=== PATIENT | female | born 1950 | race Caucasian/White ===

== ENCOUNTER → 2018-02-18 | Outpatient (CLI) | payer MEDICARE | END | disposition home or self-care (01) | LOC: RAH 12:46 | PROVIDERS: ATTEND Physical Medicine & Rehabilitation | DX: M16.11 Unilateral primary osteoarthritis, right hip (principal); M17.11 Unilateral primary osteoarthritis, right knee | CPT/HCPCS: 73502; 73562 ==

== ENCOUNTER → 2019-08-25 | Outpatient (CLI) | payer MEDICARE | END | disposition home or self-care (01) | LOC: RAH 08:48 | PROVIDERS: ATTEND Physical Medicine & Rehabilitation | DX: M79.605 Pain in left leg (principal) | CPT/HCPCS: 73590 ==

== ENCOUNTER → 2020-07-04 | Outpatient (CLI) | payer MEDICARE | END | disposition home or self-care (01) | LOC: RAH 09:47 | PROVIDERS: ATTEND Physical Medicine & Rehabilitation | DX: M16.0 Bilateral primary osteoarthritis of hip (principal) | CPT/HCPCS: 72170; 73502 ==

== ENCOUNTER 2020-09-03 15:00 | Inpatient (IN) | payer MEDICARE ==
[~2020-09-03] VITALS: Ht 160 cm; Wt 91.9 kg
[2020-09-03 10:12] LABS: APPEARANCE,URINE Clear (CLEAR); BILIRUBIN,URINE Negative (NEGATIVE); COLOR,URINE Yellow (YELLOW); GLUCOSE, URINE (UA) Negative (NEGATIVE); KETONES,URINE Negative (NEGATIVE); LEUKOCYTE ESTERASE ,URINE Trace (NEGATIVE); NITRATE,URINE Negative (NEGATIVE); OCCULT BLOOD,URINE Negative (NEGATIVE); PH,URINE 6.5 (5.0-8.0); PROTEIN,URINE Negative (NEGATIVE); UROBILINOGEN,URINE 0.2 mg/dL (0.2-1.0)
[2020-09-03 10:21] LABS: BACTERIA,URINE Rare /HPF (None Seen); RBC,URINE None Seen /HPF (0-1); WBC,URINE 0-1 /HPF (0-1)
[2020-09-03 10:22] LABS: MUCUS,URINE Moderate LPF (None Seen)
[2020-09-07] MEDS ORDERED: ESCI10TA54 PO (16:30)
[2020-09-07] MEDS ORDERED: CYAN100022 SL (16:30)
[2020-09-07] MEDS ORDERED: PRAS25CA3 PO (16:30)
[2020-09-07] MEDS ORDERED: ZINC SULFATE PO (16:30)
[2020-09-07] MEDS ORDERED: METF-446 PO (16:30)
[2020-09-07] MEDS ORDERED: ASCO100031 PO (16:30)
[2020-09-07] MEDS ORDERED: CALC600T15 PO (16:30)
[2020-09-07] MEDS ORDERED: CHOL200013 PO (16:30)
[2020-09-07] MEDS ORDERED: MAGN250T10 PO (16:30)
[2020-09-07] MEDS ORDERED: OMEP40CA13 PO (16:30)
[2020-09-07] MEDS ORDERED: TUMERIC PO (16:30)
[2020-09-07] MEDS ORDERED: MULT-1367 PO (16:30)
[2020-09-07] MEDS ORDERED: SUCR1TAB PO (16:30)
[2020-09-07] MEDS ORDERED: ASPI-1443 PO (16:30)
--- NOTE | 2020-09-07 16:52 | NUR ---
LAB ABNORMAL UA REPORTED TO DR DENNIS FURTHER ORDERS GIVEN AND WILL CARRIED OUT
[2020-09-10] VITALS (13 sets, daily range): BP systolic 112–159; BP diastolic 60–85
[2020-09-10] MEDS ORDERED: GENTAMICIN SULFATE 240 MG in SODIUM CHLORIDE 0.9% 100 ML IV SCH (06:00)
[2020-09-10] MEDS: CLINDAMYCIN 900 MG/D5% WATER 50 ML IV SCH ×2 (06:00→20:20)
[2020-09-10] MEDS ORDERED: SODIUM CHLORIDE 0.9% 1000ML 1,000 ML IV ONE (10:43)
--- NOTE | 2020-09-10 10:45 | NUR ---
preop pt arrived via w/c in no distress. pt oriented to call light and room. will cont to monitor pt.
[2020-09-10] MEDS ORDERED: CLINDAMYCIN PHOSPHATE 150 MG/ML 6ML VIAL ONE (19:19)
[2020-09-10] MEDS ORDERED: TRANEXAMIC ACID 1000MG/10ML ONE ×2 (19:36→22:56)
[2020-09-10] MEDS ORDERED: LIDOCAINE PF 2% 5ML ABBOJECT ONE (19:39)
[2020-09-10] MEDS ORDERED: PROPOFOL 10 MG/ML 20ML VIAL IV ONE (19:39)
[2020-09-10] MEDS ORDERED: DEXAMETHASONE SOD PHOSPHATE 10MG/ML 1ML VIAL ONE (19:40)
[2020-09-10] MEDS ORDERED: FENTANYL CITRATE PF 50 MCG/1 ML 2ML VIAL ONE ×2 (19:40→20:38)
[2020-09-10] MEDS ORDERED: ROCURONIUM 10MG/1ML SYR 10 MG/ML ML ONE ×2 (19:40→21:39)
[2020-09-10] MEDS ORDERED: ONDANSETRON HCL 4 MG/2 ML VIAL ONE (19:40)
[2020-09-10] MEDS ORDERED: MIDAZOLAM HCL 1 MG/ML 2ML VIAL ONE (19:40)
[2020-09-10] MEDS ORDERED: ROPIVACAINE 0.5% 5MG/ML 30ML IJ ONE (19:41)
[2020-09-10] MEDS ORDERED: EPHEDRINE SULFATE 50 MG/ML AMPULE ONE (20:08)
[2020-09-10] MEDS ORDERED: CLINDAMYCIN PHOSPHATE 150 MG/ML 6ML VIAL IJ ONE (20:44)
[2020-09-10] MEDS: ACETAMINOPHEN EXTRA STRENGTH 500 MG TABLET PO SCH (22:30)
[2020-09-10] MEDS ORDERED: OXYCODONE HCL 5 MG TAB PO PRN (22:30)
[2020-09-10] MEDS ORDERED: CALCIUM CARBONATE 500 MG TABLET PO PRN (22:30)
[2020-09-10] MEDS ORDERED: TRAMADOL HCL 50 MG TABLET PO PRN (22:30)
[2020-09-10] MEDS ORDERED: KETOROLAC TROMETHAMINE 15MG/ML IV PRN (22:30)
[2020-09-10] MEDS ORDERED: POTASSIUM CHLORIDE 20MEQ/100ML 100 ML IV PRN (22:30)
[2020-09-10] MEDS ORDERED: ONDANSETRON HCL 4 MG/2 ML VIAL IVP PRN (22:30)
[2020-09-10] MEDS ORDERED: FERROUS FUMARATE 324 MG TABLET PO PRN (22:30)
[2020-09-10] MEDS ORDERED: POTASSIUM CHLORIDE 10% ELIXIR 20 MEQ/15 ML UDCUP PO PRN (22:30)
[2020-09-10] MEDS: SODIUM CHLORIDE 0.9% 1000ML 1,000 ML IV SCH (22:30)
[2020-09-10] MEDS ORDERED: POTASSIUM CHLORIDE 20 MEQ ERTAB PO PRN (22:30)
[2020-09-10] MEDS ORDERED: LIDOCAINE HCL-MPF 1% 2ML VIAL IV PRN (22:30)
[2020-09-10] MEDS ORDERED: DiphenhydrAMINE HCL 50 MG/ML VIAL IVP PRN (22:30)
[2020-09-10] MEDS ORDERED: TEMAZEPAM 15 MG CAPSULE PO PRN (22:30)
[2020-09-10] MEDS ORDERED: MEPERIDINE-PF 25 MG/ML SYG ONE ×2 (23:18→23:40)
[2020-09-11] VITALS (18 sets, daily range): BP systolic 92–126; BP diastolic 51–70
[2020-09-11] MEDS ORDERED: ASPIRIN 81 MG EC TAB PO SCH (02:00)
[2020-09-11] MEDS: CLINDAMYCIN 900 MG/D5% WATER 50 ML IVPB SCH ×2 (03:23→12:09)
[2020-09-11 03:46] LABS: HEMATOCRIT 36.5 % (36-48); MEAN CORPUSCULAR HEMOGLOBIN 30.7 pg (27.0-33.0); MEAN CORPUSCULAR HGB CONC 32.6 g/dL (32.0-36.0); MEAN CORPUSCULAR VOLUME 94.3 fL (79-99); RED BLOOD CELL COUNT(AUTO) 3.87 MIL/uL (4.00-5.50); RED CELL DISTRIBUTION WIDTH 12.3 % (11.0-15.5); WHITE BLOOD COUNT (AUTO) 9.8 K/uL (4.8-10.8)
[2020-09-11 03:57] LABS: CREATININE 0.7 mg/dL (0.5-1.5); POTASSIUM 3.7 mmol/L (3.5-5.1)
[2020-09-11] MEDS: VANCOMYCIN 1GM+NS 250ML 250 ML IV SCH ×2 (04:44→16:44)
[2020-09-11] MEDS: INSULIN HUMULIN R 100 UNIT/ML 3ML SQ SCH ×4 (06:26→21:00)
[2020-09-11] MEDS: ACETAMINOPHEN EXTRA STRENGTH 500 MG TABLET PO SCH ×3 (06:29→22:28)
[2020-09-11] MEDS: MULTIVITAMIN TABLET PO SCH (08:29)
[2020-09-11] MEDS: ASCORBIC ACID 500 MG TAB PO SCH (08:29)
[2020-09-11] MEDS: APIXABAN 2.5 MG TABLET PO SCH ×2 (08:29→22:28)
[2020-09-11] MEDS: CELECOXIB 200 MG CAP PO SCH ×2 (08:30→22:28)
[2020-09-11] MEDS: CALCIUM CARBONATE 500 MG TABLET PO SCH ×2 (08:30→22:28)
[2020-09-11] MEDS: METFORMIN HCL 500 MG TABLET PO SCH ×2 (08:30→16:44)
[2020-09-11] MEDS: SODIUM CHLORIDE 0.9% 1000ML 1,000 ML IV SCH ×2 (08:30→18:30)
[2020-09-11] MEDS: ZINC SULFATE 220 CAPSULE PO SCH (08:30)
[2020-09-11] MEDS: PREGABALIN 25 MG CAP PO SCH ×2 (08:31→22:29)
[2020-09-11] MEDS: PANTOPRAZOLE SODIUM 40 MG TABLET.DR PO SCH (08:31)
[2020-09-11] MEDS: **HM** VIT D3 50MCG PO SCH ×2 (08:32→21:00)
[2020-09-11] MEDS: POLYETHYLENE GLYCOL 3350 17 GM POWD.PACK PO SCH (08:33)
[2020-09-11] MEDS: **HM** DHEA 25MG PO SCH (08:33)
[2020-09-11] MEDS: CYANOCOBALAMIN (VITAMIN B-12) 1,000 MCG TABLET PO SCH (08:43)
[2020-09-11] MEDS: OXYCODONE HCL 5 MG TAB PO PRN ×3 (09:55→22:27)
[2020-09-11] MEDS ORDERED: PHARMACY COMMUNICATION MISC SCH (16:00)
--- NOTE | 2020-09-11 16:34 | NUR ---
MET WITH PATIENT AT BEDSIDE [facility] WITH SPOUSE. PREVIOUSLY INDEPENDENT, NO DME OR SERIVCES, DRIVES ORDER FOR REHAB VS HH, STATES WILL GO [facility] AND REFRRAL SENT Addendum: 09/12/20 at 1638 by MARCUS LOUIE RN CM Amended: Links added.
[2020-09-11] MEDS ORDERED: CITALOPRAM 20 MG TABLET PO SCH (21:00)
[2020-09-11] MEDS ORDERED: SUCRALFATE 1 GM TABLET PO SCH (21:00)
[2020-09-11] MEDS ORDERED: MAGNESIUM OXIDE 400 MG TABLET PO SCH (21:00)
--- NOTE | 2020-09-11 23:35 | NUR ---
ACTIVITY PATIENT SAYS SHE WOULD LIKE TO SIT IN CHAIR SHE FEELS TIRED ON BEING IN BED. ASSISTED HER AND PROVIDED CALL LIGHT AND BEDSIDE TABLE WITHIN REACH.
[2020-09-12] VITALS: BP 113/62
[2020-09-12 04:00] VITALS: BP 120/55
[2020-09-12] MEDS: INSULIN HUMULIN R 100 UNIT/ML 3ML SQ SCH ×2 (06:44→10:48)
[2020-09-12] MEDS: ACETAMINOPHEN EXTRA STRENGTH 500 MG TABLET PO SCH ×2 (06:55→15:08)
[2020-09-12 07:45] VITALS: BP 101/71
[2020-09-12] MEDS: **HM** VIT D3 50MCG PO SCH (09:00)
[2020-09-12] MEDS: **HM** DHEA 25MG PO SCH (09:00)
[2020-09-12] MEDS: MULTIVITAMIN TABLET PO SCH (09:32)
[2020-09-12] MEDS: ZINC SULFATE 220 CAPSULE PO SCH (09:33)
[2020-09-12] MEDS: APIXABAN 2.5 MG TABLET PO SCH (09:33)
[2020-09-12] MEDS: PREGABALIN 25 MG CAP PO SCH (09:33)
[2020-09-12] MEDS: CALCIUM CARBONATE 500 MG TABLET PO SCH (09:33)
[2020-09-12] MEDS: CYANOCOBALAMIN (VITAMIN B-12) 1,000 MCG TABLET PO SCH (09:33)
[2020-09-12] MEDS: CELECOXIB 200 MG CAP PO SCH (09:33)
[2020-09-12] MEDS: PANTOPRAZOLE SODIUM 40 MG TABLET.DR PO SCH (09:33)
[2020-09-12] MEDS: POLYETHYLENE GLYCOL 3350 17 GM POWD.PACK PO SCH (09:36)
[2020-09-12] MEDS: ASCORBIC ACID 500 MG TAB PO SCH (09:36)
[2020-09-12] MEDS: METFORMIN HCL 500 MG TABLET PO SCH (09:43)
[2020-09-12 11:07] VITALS: BP 105/61
[2020-09-12] MEDS: OXYCODONE HCL 5 MG TAB PO PRN (12:05)
[2020-09-12] MEDS ORDERED: APIX2.5T PO (13:36)
[2020-09-12] MEDS ORDERED: HYDR-4457 PO (13:36)
--- NOTE | 2020-09-12 18:15 | NUR ---
REPORT TO [facility] REPORT GIVEN TO [facility] AND CALL BACK NUMBERS GIVEN FOR ANY FOLLOW-UP QUESTIONS, [facility] AND 3 IN ONE CHAIR DELIVERED TO HOME PER .
--- NOTE | 2020-09-12 18:30 | NUR ---
DISCHARGE INSTRUCTIONS PATIENT AND GIVEN DISCHARGE INSTRUCTIONS AND VERBALIZED UNDERSTANDING , INSTRUCTED ON HEIDI DRESSING CARE AND TO MONITOR GREEN LIGHT FOR INTACT SEAL AND HOME HEALTH NURSE TO D/C HEIDI ON THE 09/17/20. , REVIEWED MEDICATIONS TO CONTINUE, STATES PAIN SCORE IS A 2 ,REVIEWED PAIN MEDICATION , EDUCATION GIVEN ON CARE AFTER ORIF OF HIP, AND FOLLOW-UP APPOINTMENT WITH DR DENNIS ON 10/03/20 AT V@ 1328. NEW MEDICATIONS WERE TRANSMITTED TO PATIENT PHARMACY. HEIDI DRESSING WAS CHANGE AND SEAL IS INTACT WITH NO LEAKS . PATIENT INSTRUCTED ON WHEN TO CALL HER DOCTOR IN FEVER, FOUL DRAINAGE FROM SITE OR IF INCREASED PAIN UNCONTROL WITH PAIN MEDICATIONS. PATIENT TAKING BY WHEELCHAIR TO [facility] TO MEET AND LEFT FOR HOME
[2020-09-13] MEDS ORDERED: BISACODYL 10 MG SUPP.RECT RC PRN (22:30)
== END 2020-09-12 18:35 | disposition home health service (06) | DRG 470 ==
LOC: DAHIP 09-10 09:57 → INTOOBSV 09-10 09:57 → OBSVTOIN 09-10 09:57 → 3BH 09-11 00:01
PROVIDERS: ADMIT Orthopaedic Surgery; ATTEND Orthopaedic Surgery
PROC: 0SR90JZ Replacement of Right Hip Joint with Synthetic Substitute, Open Approach (ICD-10-PCS; principal; 2020-09-10 19:42)
DX: M16.11 Unilateral primary osteoarthritis, right hip (principal); M06.9 Rheumatoid arthritis, unspecified; K21.9 Gastro-esophageal reflux disease without esophagitis; Z20.828 Contact with and (suspected) exposure to other viral communicable diseases; E66.01 Morbid (severe) obesity due to excess calories; F41.9 Anxiety disorder, unspecified; G89.29 Other chronic pain; R26.9 Unspecified abnormalities of gait and mobility; Z82.49 Family history of ischemic heart disease and other diseases of the circulatory system; Z87.891 Personal history of nicotine dependence; Z88.0 Allergy status to penicillin; Z90.49 Acquired absence of other specified parts of digestive tract; Z80.9 Family history of malignant neoplasm, unspecified; Z68.35 Body mass index [BMI] 35.0-35.9, adult; Z98.42 Cataract extraction status, left eye; Z98.41 Cataract extraction status, right eye
CPT/HCPCS: 36415; 73503; 80048; 81001; 82948; 85027; 86850; 86900; 86901; 87641; 97039; C1776; G0378; J1100; J1580; J2001; J2175; J2250; J2405; J2704; J2795; J3010; J3370; J3490; J7030; U0003